=== PATIENT | female | born 1945 | race Caucasian/White ===

== ENCOUNTER 2016-10-26 07:56 | Day surgery (SDC) | payer OTHER, BC ==
[2016-10-25 15:15] VITALS: BMI 31.4
[2016-10-26] MEDS ORDERED: PROPOFOL 20 ML ONE ×2 (08:48)
[2016-10-26] MEDS ORDERED: LIDOCAINE HCL/PF 1% SDV 5ML VIAL ONE (08:48)
[2016-10-26 11:16] VITALS: BP 110/59; PULSE 68; TEMP 98
--- NOTE | 2016-10-27 13:46 | PATH ---
Surgical Pathology Report Patient Name: [facility]IA [facility]. Rec. #: [id number] /Age/Gender: 1945 (Age: 71) / F Account: [id number] Location: [facility] SURGICAL Taken: 10/26/2016 Received: 10/26/2016 Reported: 10/27/2016 Physicians: Ashely Joseph M.D. Specimen(s) Received A: POLYP SIGMOID B: BX SIGMOID STRICTURE Clinical History Colon polyp, diverticulosis, r/o smoldering diverticulitis Final Diagnosis A. COLON, SIGMOID, POLYP POLYPECTOMY: FRAGMENTS OF HYPERPLASTIC POLYP. B. COLON, SIGMOID, STRICTURE, BIOPSY: COLONIC MUCOSA WITH FOCAL MILD ACTIVE INTERSTITIAL INFLAMMATION, FOCAL LAMINA PROPRIA FIBROSIS, FOCALLY PROMINENT BENIGN SMOOTH MUSCLE, AND HYPERPLASTIC CHANGE (SEE COMMENT). NO EVIDENCE OF SIGNIFICANT ARCHITECTURAL DISTORTION, GRANULOMATA OR DYSPLASIA. Comment: The findings are nonspecific and may represent mild peridiverticular inflammation in proper clinical and endoscopic settings. Electronically Signed David Torres M.D. Gross Description A. Received in formalin, labeled "polyp sigmoid" are 5 demarco, irregular portions of soft tissue ranging from 0.1-0.3 cm in greatest dimension. The specimens are submitted in toto in one cassette. B. Received in formalin, labeled "biopsy sigmoid stricture" are 3 demarco, irregular portions of soft tissue ranging from 0.2-0.3 cm in greatest dimension. The specimens are submitted in toto in one cassette. /10/26/201610/26/2016
== END 2016-10-26 11:16 | disposition home or self-care (01) ==
LOC: JASU-SURG 07:56
PROVIDERS: ATTEND Internal Medicine Gastroenterology
PROC: 0DBE8ZX Excision of Large Intestine, Via Natural or Artificial Opening Endoscopic, Diagnostic (ICD-10-PCS; 2016-10-26)
PROC: 0DBN8ZX Excision of Sigmoid Colon, Via Natural or Artificial Opening Endoscopic, Diagnostic (ICD-10-PCS; principal; 2016-10-26 09:00)
DX: K57.32 Diverticulitis of large intestine without perforation or abscess without bleeding (principal); K56.69 Other intestinal obstruction; K57.30 Diverticulosis of large intestine without perforation or abscess without bleeding; D12.5 Benign neoplasm of sigmoid colon; R10.32 Left lower quadrant pain
CPT/HCPCS: 88305-TC

== ENCOUNTER 2016-12-14 07:02 | Day surgery (SDC) | payer OTHER, BC ==
[2016-12-13 14:17] VITALS: BMI 33.2
[2016-12-14 07:38] VITALS: TEMP 98.1
[2016-12-14] MEDS ORDERED: PROPOFOL 20 ML ONE ×2 (07:50)
[2016-12-14 09:53] VITALS: BP 105/55; PULSE 58
--- NOTE | 2016-12-15 12:54 | PATH ---
Surgical Pathology Report Patient Name: NUVIA [facility] Rec. #: [id number] /Age/Gender: 1945 (Age: 71) / F Account: [id number] Location: [facility]-ENDOSCOPY Taken: 12/14/2016 Received: 12/14/2016 Reported: 12/15/2016 Physicians: Ashely Joseph M.D. Specimen(s) Received A: BX ANTRAL EROSION B: BX OF FUNDIC POLYP C: BX GASTRIC BODY POLYP D: BX SCHATZKI'S RING Clinical History Acid reflux, dysphagia Gastric polyps, Schatzki's ring, gastritis, hiatal hernia Final Diagnosis A. STOMACH, ANTRUM, EROSION, BIOPSY: GASTRIC ANTRAL MUCOSA WITH MODERATE CHRONIC GASTRITIS AND MILD REACTIVE GASTROPATHY WITH FOCAL SURFACE EROSION. IMMUNOSTAIN FOR H. PYLORI IS NEGATIVE FOR ORGANISMS. B. STOMACH, FUNDIC POLYP, BIOPSY: GASTRIC OXYNTIC MUCOSA WITH FUNDIC GLAND POLYP AND MILD CHRONIC GASTRITIS. IMMUNOSTAIN FOR H. PYLORI IS NEGATIVE FOR ORGANISMS. C. STOMACH, BODY POLYP, BIOPSY: GASTRIC OXYNTIC MUCOSA WITH FUNDIC GLAND POLYP AND MODERATE CHRONIC GASTRITIS. IMMUNOSTAIN FOR H. PYLORI IS NEGATIVE FOR ORGANISMS. D. SCHATZKI'S RING, BIOPSY: SQUAMOUS EPITHELIUM WITH FOCAL ACUTE AND CHRONIC INFLAMMATION AND REFLUX TYPE CHANGES. NO COLUMNAR EPITHELIUM PRESENT (NO INTESTINAL METAPLASIA/WANG'S ESOPHAGUS IDENTIFIED). Electronically Signed David Torres M.D. Gross Description A. Received in formalin, labeled "biopsy antral erosion" is a demarco, irregular portion of soft tissue measuring 0.3 cm in greatest dimension. The specimen is submitted in toto in one cassette. B. Received in formalin, labeled "biopsy fundic polyps" are 3 demarco, irregular portions of soft tissue ranging from 0.1-0.4 cm in greatest dimension. The specimens are submitted in toto in one cassette. C. Received in formalin, labeled "biopsy gastric body" are 2 demarco, irregular portions of soft tissue averaging 0.2 cm in greatest dimension. The specimens are submitted in toto in one cassette. D. Received in formalin, labeled "biopsy Schatzki's ring" are 4 demarco, irregular portions of soft tissue ranging from 0.2-0.4 cm in greatest dimension. The specimens are submitted in toto in one cassette. DL/12/14/2016 saudi/12/14/2016
== END 2016-12-14 09:56 | disposition home or self-care (01) ==
LOC: JASU-ENDO 07:02
PROVIDERS: ATTEND Internal Medicine Gastroenterology
PROC: 0DB68ZX Excision of Stomach, Via Natural or Artificial Opening Endoscopic, Diagnostic (ICD-10-PCS; 2016-12-14)
PROC: 0DB28ZX Excision of Middle Esophagus, Via Natural or Artificial Opening Endoscopic, Diagnostic (ICD-10-PCS; 2016-12-14)
PROC: 0DB38ZX Excision of Lower Esophagus, Via Natural or Artificial Opening Endoscopic, Diagnostic (ICD-10-PCS; 2016-12-14)
PROC: 0DB48ZX Excision of Esophagogastric Junction, Via Natural or Artificial Opening Endoscopic, Diagnostic (ICD-10-PCS; 2016-12-14)
PROC: 0D748ZZ Dilation of Esophagogastric Junction, Via Natural or Artificial Opening Endoscopic (ICD-10-PCS; 2016-12-14)
PROC: 0DB98ZX Excision of Duodenum, Via Natural or Artificial Opening Endoscopic, Diagnostic (ICD-10-PCS; principal; 2016-12-14 08:00)
DX: K22.2 Esophageal obstruction (principal); K44.9 Diaphragmatic hernia without obstruction or gangrene; K21.0 Gastro-esophageal reflux disease with esophagitis; K25.9 Gastric ulcer, unspecified as acute or chronic, without hemorrhage or perforation; K31.7 Polyp of stomach and duodenum
CPT/HCPCS: 88305-TC; 88342-TC

== ENCOUNTER 2021-12-02 04:11 | Day surgery (SDC) | payer OTHER, BC ==
[2021-11-30 16:56] VITALS: BMI 29.6
[2021-12-02] MEDS ORDERED: MIDAZOLAM HCL 2 MG/2 ML SINGLE DOSE VIAL ONE (07:25)
[2021-12-02] MEDS ORDERED: PROPOFOL 20 ML ONE ×4 (07:25)
[2021-12-02] MEDS ORDERED: LIDOCAINE HCL/PF 2% SDV 5ML VIAL ONE (07:26)
[2021-12-02] MEDS ORDERED: LIDOCAINE 1%/EPI 1:100000 (20 ML MULTI DOSE VIAL) ONE (07:58)
[2021-12-02] MEDS ORDERED: BUPIVACAINE HCL/PF 0.5% (5MG/ML) 10 ML VIAL ONE (08:03)
[2021-12-02] MEDS ORDERED: ceFAZolin SODIUM 1 GM VIAL ONE (08:11)
[2021-12-02] MEDS ORDERED: GLYCOPYRROLATE 0.2 MG/1 ML VIAL ONE (08:11)
[2021-12-02] MEDS ORDERED: ceFAZolin SODIUM 1 GM VIAL IVPB ONE (08:15)
[2021-12-02] MEDS ORDERED: LIDOCAINE 1%/EPI 1:100000 (20 ML MULTI DOSE VIAL) IJ ONE (08:31)
[2021-12-02] MEDS ORDERED: BUPIVACAINE HCL/PF 0.5% (5MG/ML) 10 ML VIAL IJ ONE (08:31)
[2021-12-02] MEDS ORDERED: THROMBIN (BOVINE) 5,000 UNIT VIAL TP ONE ×2 (08:45)
[2021-12-02] MEDS ORDERED: PHENYLEPHRINE HCL 10 MG/1 ML SINGLE DOSE VIAL ONE (08:47)
[2021-12-02] MEDS ORDERED: DEXAMETHASONE SOD PHOSPHATE 4 MG/1 ML VIAL ONE (08:47)
[2021-12-02] MEDS ORDERED: ACETAMINOPHEN 325 MG TABLET (FP) PO PRN (09:06)
[2021-12-02] MEDS ORDERED: ONDANSETRON 4 MG/2 ML VIAL IVPUSH PRN (09:06)
[2021-12-02] MEDS ORDERED: oxyCODONE HCL 5 MG TABLET PO PRN (09:06)
[2021-12-02] MEDS ORDERED: LACTATED RINGERS SOLUTION 1,000 ML IV SCH (09:15)
[2021-12-02 09:56] VITALS: PULSE 94
[2021-12-02 10:36] VITALS: BP 118/60; TEMP 97.5
== END 2021-12-02 10:51 | disposition home or self-care (01) ==
LOC: JASU-SURG 04:11
PROVIDERS: ATTEND Surgery
PROC: 07B20ZX Excision of Left Neck Lymphatic, Open Approach, Diagnostic (ICD-10-PCS; principal; 2021-12-02 08:00)
DX: C83.31 Diffuse large B-cell lymphoma, lymph nodes of head, face, and neck (principal); I10 Essential (primary) hypertension; E11.9 Type 2 diabetes mellitus without complications
CPT/HCPCS: 88307-TC; 94760

== ENCOUNTER 2021-12-06 00:42 | Emergency (ER) | payer OTHER, BC ==
[2021-12-06] MEDS ORDERED: FAMOTIDINE 20 MG/50 ML IVPB 20 MG/50 ML MG IVPB ONE (00:50)
[2021-12-06] MEDS ORDERED: LACTULOSE 20 GM/30 ML UDC (FOR ORAL USE ONLY) PO ONE (00:51)
[2021-12-06 00:57] VITALS: BP 175/67; PULSE 68; TEMP 98.4; BMI 29.8
[2021-12-06] MEDS ORDERED: ACETAMINOPHEN 1000 MG/100 ML BAG IVPB ONE (01:03)
[2021-12-06] MEDS ORDERED: LACTULOSE 20 GM/30 ML UDC (FOR ORAL USE ONLY) ONE (01:25)
[2021-12-06] MEDS ORDERED: ACETAMINOPHEN INJECTION 100 ML IVPB ONE (01:25)
[2021-12-06 02:15] LABS: BASO % 0.4 % (0-2.0); EOS % 0.4 % (0-4.5); HEMATOCRIT 36.9 % (32.4-45.2); HEMOGLOBIN 12.4 GM/dL (10.7-15.3); LYMPH % 8.6 % (8-40); MCH 32.8 pg (25.7-33.7); MCHC 33.6 g/dl (32.0-36.0); MEAN CELL VOLUME 97.6 fl (80-96); MEAN PLT VOLUME 7.7 fl (7.5-11.1); MONO % 3.9 % (3.8-10.2); NEUT % 86.7 % (42.8-82.8); PLATELET COUNT 296 10^3/uL (134-434); RBC 3.78 M/mm3 (3.60-5.2); RDW 12.5 % (11.6-15.6); WHITE BLOOD COUNT 9.7 K/mm3 (4.0-10.0)
[2021-12-06 02:22] LABS: INR 1.08 (0.83-1.09); PROTHROMBIN TIME (PATIENT) 12.4 SEC (9.7-13.0)
[2021-12-06 02:39] LABS: BLOOD UREA NITROGEN 18.5 mg/dL (7-18); CALCIUM 9.2 mg/dL (8.5-10.1)
[2021-12-06] MEDS ORDERED: morphine SULFATE IMMEDIATE RELEASE 30 MG TAB PO ONE (02:39)
[2021-12-06 02:40] LABS: ALBUMIN 3.6 g/dl (3.4-5.0)
[2021-12-06 02:43] LABS: CREATININE 0.8 mg/dL (0.55-1.3)
[2021-12-06 02:44] LABS: BILIRUBIN,TOTAL 0.3 mg/dL (0.2-1); TOT PROT 6.8 g/dl (6.4-8.2)
[2021-12-06] MEDS ORDERED: morphine SULFATE IMMEDIATE RELEASE 30 MG TAB ONE (02:55)
== END 2021-12-06 03:44 | disposition home or self-care (01) ==
LOC: FER 00:42
PROC: 3E0333Z Introduction of Anti-inflammatory into Peripheral Vein, Percutaneous Approach (ICD-10-PCS; principal; 2021-12-06)
PROC: 3E033GC Introduction of Other Therapeutic Substance into Peripheral Vein, Percutaneous Approach (ICD-10-PCS; 2021-12-06)
DX: R06.00 Dyspnea, unspecified (principal); R10.13 Epigastric pain; K59.01 Slow transit constipation
CPT/HCPCS: 36415; 80053; 82550; 84484; 85025; 85610; 93005; 96374; 96375; 99284-25

== ENCOUNTER 2022-01-07 05:44 | Day surgery (SDC) | payer OTHER, BC ==
[2022-01-05 12:36] VITALS: BMI 31.2
[2022-01-07 14:31] VITALS: BP 112/55; PULSE 63; TEMP 98.1
== END 2022-01-07 14:38 | disposition home or self-care (01) ==
LOC: JASU-ENDO 05:44
PROVIDERS: ATTEND Internal Medicine Gastroenterology
PROC: 0DB28ZX Excision of Middle Esophagus, Via Natural or Artificial Opening Endoscopic, Diagnostic (ICD-10-PCS; 2022-01-07)
PROC: 0DB78ZX Excision of Stomach, Pylorus, Via Natural or Artificial Opening Endoscopic, Diagnostic (ICD-10-PCS; 2022-01-07)
PROC: 0DBN8ZX Excision of Sigmoid Colon, Via Natural or Artificial Opening Endoscopic, Diagnostic (ICD-10-PCS; principal; 2022-01-07 12:52)
DX: Z12.11 Encounter for screening for malignant neoplasm of colon (principal); C85.11 Unspecified B-cell lymphoma, lymph nodes of head, face, and neck; K22.10 Ulcer of esophagus without bleeding; K44.9 Diaphragmatic hernia without obstruction or gangrene; K56.699 Other intestinal obstruction unspecified as to partial versus complete obstruction; K57.30 Diverticulosis of large intestine without perforation or abscess without bleeding; D13.1 Benign neoplasm of stomach; D64.9 Anemia, unspecified; I10 Essential (primary) hypertension
CPT/HCPCS: 88305-TC; 88342-TC

== ENCOUNTER 2022-01-12 07:55 | Day surgery (SDC) | payer OTHER, BC ==
[2022-01-12] MEDS ORDERED: LIDOCAINE 2.5%/PRILOCAINE 2.5% 30 GRAM TUBE TP ONE (09:15)
[2022-01-12 09:55] LABS: BASO % 0.8 % (0-2.0); EOS % 5.2 % (0-4.5); HEMATOCRIT 36.1 % (32.4-45.2); LYMPH % 24.2 % (8-40); MCH 32.2 pg (25.7-33.7); MCHC 33.2 g/dl (32.0-36.0); MEAN CELL VOLUME 97.2 fl (80-96); MEAN PLT VOLUME 7.8 fl (7.5-11.1); MONO % 7.4 % (3.8-10.2); NEUT % 62.4 % (42.8-82.8); PLATELET COUNT 242 10^3/uL (134-434); RBC 3.72 M/mm3 (3.60-5.2); RDW 12.9 % (11.6-15.6); WHITE BLOOD COUNT 5.2 K/mm3 (4.0-10.0)
[2022-01-12] MEDS ORDERED: SODIUM CHLORIDE 250 ML IV ONE ×2 (10:00→13:00)
[2022-01-12 10:18] LABS: ALBUMIN 3.3 g/dl (3.4-5.0); BLOOD UREA NITROGEN 16.7 mg/dL (7-18)
[2022-01-12 10:20] LABS: BILIRUBIN,DIRECT 0.1 mg/dL (0.0-0.2); CREATININE 0.7 mg/dL (0.55-1.3); URIC ACID 2.6 mg/dL (2.6-7.2)
[2022-01-12 10:22] LABS: TOT PROT 6.7 g/dl (6.4-8.2)
[2022-01-12 10:23] LABS: BILIRUBIN,TOTAL 0.4 mg/dL (0.2-1)
[2022-01-12] MEDS ORDERED: ACETAMINOPHEN 325 MG TABLET (FP) PO ONE (10:30)
[2022-01-12] MEDS ORDERED: DEXAMETHASONE SODIUM PHOSPHATE 10 MG, DIPHENHYDRAMINE 25 MG in SODIUM CHLORIDE 100 ML IVPB ONE (10:30)
[2022-01-12] MEDS ORDERED: RITUXIMAB ABBS IVPB ONE (11:00)
[2022-01-12] MEDS ORDERED: SODIUM CHLORIDE IVPB ONE (11:00)
[2022-01-12] MEDS ORDERED: PORTA CATH FLUSH 10 ML IVPUSH ONE ×2 (16:52→17:40)
[2022-01-12 16:53] VITALS: TEMP 97.5
[2022-01-12 17:41] VITALS: BP 137/56; PULSE 63
== END 2022-01-12 17:45 | disposition home or self-care (01) ==
LOC: JONCCHEMO 07:55
PROVIDERS: ATTEND Internal Medicine Hematology & Oncology
PROC: 3E04305 Introduction of Other Antineoplastic into Central Vein, Percutaneous Approach (ICD-10-PCS; principal; 2022-01-12)
PROC: 3E043GC Introduction of Other Therapeutic Substance into Central Vein, Percutaneous Approach (ICD-10-PCS; 2022-01-12)
PROC: 3E0437Z Introduction of Electrolytic and Water Balance Substance into Central Vein, Percutaneous Approach (ICD-10-PCS; 2022-01-12)
DX: Z51.11 Encounter for antineoplastic chemotherapy (principal); C83.31 Diffuse large B-cell lymphoma, lymph nodes of head, face, and neck
CPT/HCPCS: 36415; 80048; 80076; 83615; 83735; 84550; 85025; 96361; 96367; 96413; 96415; Q5115

== ENCOUNTER 2022-01-13 07:01 | Day surgery (SDC) | payer OTHER, BC ==
[2022-01-13] MEDS ORDERED: SODIUM CHLORIDE 500 ML IV ONE (10:00)
[2022-01-13] MEDS ORDERED: DEXAMETHASONE SODIUM PHOSPHATE 10 MG in SODIUM CHLORIDE 50 ML IVPB ONE (10:30)
[2022-01-13] MEDS ORDERED: FOSAPREPITANT DIMEGLUMINE 150 MG in SODIUM CHLORIDE 145 ML IVPB ONE (10:30)
[2022-01-13] MEDS ORDERED: PALONOSETRON HCL 0.25 MG/5 ML VIAL IVPUSH ONE (10:30)
[2022-01-13] MEDS ORDERED: DOXOrubicin HCL 50 MG/25 ML VIAL IV ONE (11:00)
[2022-01-13] MEDS ORDERED: SODIUM CHLORIDE IVPB ONE (11:30)
[2022-01-13] MEDS ORDERED: CYCLOPHOSPHAMIDE IVPB ONE (11:30)
[2022-01-13] MEDS ORDERED: vinCRIStine SULFATE 2 MG in SODIUM CHLORIDE 25 ML IVPB ONE (12:00)
[2022-01-13] MEDS ORDERED: POTASSIUM CHLORIDE 10 MEQ, MAGNESIUM SULFATE 1 GM in SODIUM CHLORIDE 500 ML IV ONE (12:15)
[2022-01-13 14:57] VITALS: TEMP 97.4
[2022-01-13] MEDS ORDERED: PORTA CATH FLUSH 10 ML IVPUSH ONE (15:27)
[2022-01-13 16:05] VITALS: BP 144/72; PULSE 66
== END 2022-01-13 14:30 | disposition home or self-care (01) ==
LOC: JONCCHEMO 07:01
PROVIDERS: ATTEND Internal Medicine Hematology & Oncology
PROC: 3E04305 Introduction of Other Antineoplastic into Central Vein, Percutaneous Approach (ICD-10-PCS; principal; 2022-01-13)
PROC: 3E043GC Introduction of Other Therapeutic Substance into Central Vein, Percutaneous Approach (ICD-10-PCS; 2022-01-13)
PROC: 3E0437Z Introduction of Electrolytic and Water Balance Substance into Central Vein, Percutaneous Approach (ICD-10-PCS; 2022-01-13)
DX: Z51.11 Encounter for antineoplastic chemotherapy (principal); C83.31 Diffuse large B-cell lymphoma, lymph nodes of head, face, and neck
CPT/HCPCS: 96361; 96367; 96375; 96411; 96413; J1453; J2469; J9070; J9370

== ENCOUNTER 2022-01-14 07:10 | Day surgery (SDC) | payer OTHER, BC ==
[2022-01-14] MEDS ORDERED: PEGFILGRASTIM-CBQV (UDENYCA) 6 MG/0.6 ML SYRINGE SQ ONE (10:00)
[2022-01-14] MEDS ORDERED: POTASSIUM CHLORIDE 10 MEQ, MAGNESIUM SULFATE 1 GM in SODIUM CHLORIDE 500 ML IV ONE (10:00)
[2022-01-14] MEDS ORDERED: DEXAMETHASONE SODIUM PHOSPHATE 10 MG in SODIUM CHLORIDE 50 ML IVPB ONE (10:00)
[2022-01-14 14:43] VITALS: TEMP 98.6
[2022-01-14] MEDS ORDERED: PORTA CATH FLUSH 10 ML IVPUSH ONE (15:05)
[2022-01-14 15:06] VITALS: BP 128/53; PULSE 76
== END 2022-01-14 12:00 | disposition home or self-care (01) ==
LOC: JONCCHEMO 07:10
PROVIDERS: ATTEND Internal Medicine Hematology & Oncology
PROC: 3E043GC Introduction of Other Therapeutic Substance into Central Vein, Percutaneous Approach (ICD-10-PCS; principal; 2022-01-14)
PROC: 3E013GC Introduction of Other Therapeutic Substance into Subcutaneous Tissue, Percutaneous Approach (ICD-10-PCS; 2022-01-14)
DX: C83.31 Diffuse large B-cell lymphoma, lymph nodes of head, face, and neck (principal); Z76.89 Persons encountering health services in other specified circumstances
CPT/HCPCS: 96372; 96374; Q5111

== ENCOUNTER 2022-01-31 06:26 | Day surgery (SDC) | payer OTHER, BC ==
[2022-01-31] MEDS ORDERED: SODIUM CHLORIDE 250 ML IV ONE ×2 (09:00→13:00)
[2022-01-31] MEDS ORDERED: ACETAMINOPHEN 325 MG TABLET (FP) PO ONE (09:30)
[2022-01-31] MEDS ORDERED: DEXAMETHASONE SODIUM PHOSPHATE 10 MG, DIPHENHYDRAMINE 25 MG in SODIUM CHLORIDE 100 ML IVPB ONE (09:30)
[2022-01-31 09:51] LABS: BASO % 1.5 % (0-2.0); EOS % 1.4 % (0-4.5); HEMATOCRIT 33.4 % (32.4-45.2); HEMOGLOBIN 11.5 GM/dL (10.7-15.3); LYMPH % 16.8 % (8-40); MCH 33.3 pg (25.7-33.7); MCHC 34.4 g/dl (32.0-36.0); MEAN CELL VOLUME 97.1 fl (80-96); MEAN PLT VOLUME 7.5 fl (7.5-11.1); MONO % 10.2 % (3.8-10.2); NEUT % 70.1 % (42.8-82.8); PLATELET COUNT 375 10^3/uL (134-434); RBC 3.44 M/mm3 (3.60-5.2); RDW 13.5 % (11.6-15.6)
[2022-01-31 10:11] LABS: CALCIUM 9.3 mg/dL (8.5-10.1)
[2022-01-31 10:12] LABS: BLOOD UREA NITROGEN 13.4 mg/dL (7-18)
[2022-01-31 10:14] LABS: BILIRUBIN,DIRECT 0.1 mg/dL (0.0-0.2)
[2022-01-31 10:15] LABS: CREATININE 0.7 mg/dL (0.55-1.3)
[2022-01-31 10:16] LABS: BILIRUBIN,TOTAL 0.2 mg/dL (0.2-1); TOT PROT 6.5 g/dl (6.4-8.2)
[2022-01-31 10:33] LABS: ALBUMIN 3.5 g/dl (3.4-5.0)
[2022-01-31] MEDS ORDERED: SODIUM CHLORIDE IVPB ONE (12:30)
[2022-01-31] MEDS ORDERED: RITUXIMAB ABBS IVPB ONE (12:30)
[2022-01-31 18:15] VITALS: TEMP 98.1
[2022-01-31] MEDS ORDERED: PORTA CATH FLUSH 10 ML IVPUSH PRN (18:41)
[2022-01-31 18:42] VITALS: BP 126/76; PULSE 76
[2022-02-01] MEDS ORDERED: SODIUM CHLORIDE IVPB ONE (10:00)
[2022-02-01] MEDS ORDERED: RITUXIMAB ABBS IVPB ONE (10:00)
== END 2022-01-31 18:10 | disposition home or self-care (01) ==
LOC: JONCCHEMO 06:26
PROVIDERS: ATTEND Internal Medicine Hematology & Oncology
DX: Z51.11 Encounter for antineoplastic chemotherapy (principal); C83.30 Diffuse large B-cell lymphoma, unspecified site
CPT/HCPCS: 36415; 80048; 80076; 83615; 83735; 84550; 85025; 96361; 96367; 96413; 96415; Q5115

== ENCOUNTER 2022-02-01 06:18 | Day surgery (SDC) | payer OTHER, BC ==
[2022-02-01] MEDS ORDERED: SODIUM CHLORIDE 500 ML IV ONE (09:00)
[2022-02-01] MEDS ORDERED: PALONOSETRON HCL 0.25 MG/5 ML VIAL IVPUSH ONE (09:30)
[2022-02-01] MEDS ORDERED: FOSAPREPITANT DIMEGLUMINE 150 MG in SODIUM CHLORIDE 145 ML IVPB ONE (09:30)
[2022-02-01] MEDS ORDERED: DEXAMETHASONE SODIUM PHOSPHATE 10 MG in SODIUM CHLORIDE 50 ML IVPB ONE (09:30)
[2022-02-01] MEDS ORDERED: DOXOrubicin HCL 50 MG/25 ML VIAL IV ONE (10:00)
[2022-02-01] MEDS ORDERED: SODIUM CHLORIDE IVPB ONE (10:15)
[2022-02-01] MEDS ORDERED: CYCLOPHOSPHAMIDE IVPB ONE (10:15)
[2022-02-01] MEDS ORDERED: vinCRIStine SULFATE 1 MG in SODIUM CHLORIDE 25 ML IVPB ONE (10:45)
[2022-02-01] MEDS ORDERED: POTASSIUM CHLORIDE 10 MEQ, MAGNESIUM SULFATE 1 GM in SODIUM CHLORIDE 500 ML IV ONE (11:00)
[2022-02-01 17:21] VITALS: BP 119/59; PULSE 64; TEMP 98.4
[2022-02-01] MEDS ORDERED: PORTA CATH FLUSH 10 ML IVPUSH PRN (17:21)
== END 2022-02-01 15:00 | disposition home or self-care (01) ==
LOC: JONCCHEMO 06:18
PROVIDERS: ATTEND Internal Medicine Hematology & Oncology
DX: Z51.11 Encounter for antineoplastic chemotherapy (principal); C83.30 Diffuse large B-cell lymphoma, unspecified site
CPT/HCPCS: 96361; 96375; 96411; 96413; J1453; J2469; J9070; J9370

== ENCOUNTER 2022-02-02 07:55 | Day surgery (SDC) | payer OTHER, BC ==
[~2022-02-02 07:55] MED LIST: CYCLOPHOSPHAMIDE IVPB ONE; DEXAMETHASONE SODIUM PHOSPHATE 10 MG in SODIUM CHLORIDE 50 ML IVPB ONE; DOXOrubicin HCL 50 MG/25 ML VIAL IV ONE; FOSAPREPITANT DIMEGLUMINE 150 MG in SODIUM CHLORIDE 145 ML IVPB ONE; PALONOSETRON HCL 0.25 MG/5 ML VIAL IVPUSH ONE; POTASSIUM CHLORIDE 10 MEQ, MAGNESIUM SULFATE 1 GM in SODIUM CHLORIDE 500 ML IV ONE; SODIUM CHLORIDE 500 ML IV ONE; SODIUM CHLORIDE IVPB ONE; vinCRIStine SULFATE 1 MG in SODIUM CHLORIDE 25 ML IVPB ONE
[2022-02-02] MEDS ORDERED: POTASSIUM CHLORIDE 10 MEQ, MAGNESIUM SULFATE 1 GM in SODIUM CHLORIDE 500 ML IV ONE (09:00)
[2022-02-02] MEDS ORDERED: DEXAMETHASONE SODIUM PHOSPHATE 10 MG in SODIUM CHLORIDE 50 ML IVPB ONE (10:00)
[2022-02-02] MEDS ORDERED: PEGFILGRASTIM-CBQV (UDENYCA) 6 MG/0.6 ML SYRINGE SQ ONE (10:00)
[2022-02-02 16:43] VITALS: BP 115/50; PULSE 54; TEMP 98.1
[2022-02-02] MEDS ORDERED: PORTA CATH FLUSH 10 ML IVPUSH PRN (16:43)
== END 2022-02-02 16:00 | disposition home or self-care (01) ==
LOC: JONCCHEMO 07:55
PROVIDERS: ATTEND Internal Medicine Hematology & Oncology
PROC: 3E043GC Introduction of Other Therapeutic Substance into Central Vein, Percutaneous Approach (ICD-10-PCS; principal; 2022-02-02)
PROC: 3E013GC Introduction of Other Therapeutic Substance into Subcutaneous Tissue, Percutaneous Approach (ICD-10-PCS; 2022-02-02)
DX: C83.30 Diffuse large B-cell lymphoma, unspecified site (principal); Z76.89 Persons encountering health services in other specified circumstances
CPT/HCPCS: 96372; 96374; Q5111

== ENCOUNTER 2022-02-20 12:31 | Inpatient (IN) | payer OTHER, BC ==
[2022-02-20] MEDS ORDERED: LACTATED RINGERS SOLUTION 1000 ML INFUS.BAG IV ONE (13:11)
[2022-02-20 14:00] LABS: BASO % 0.8 % (0-2.0); EOS % 0.6 % (0-4.5); HEMATOCRIT 32.8 % (32.4-45.2); HEMOGLOBIN 10.8 GM/dL (10.7-15.3); LYMPH % 6.2 % (8-40); MCH 32.6 pg (25.7-33.7); MEAN CELL VOLUME 98.7 fl (80-96); MEAN PLT VOLUME 7.5 fl (7.5-11.1); MONO % 4.2 % (3.8-10.2); NEUT % 88.2 % (42.8-82.8); PLATELET COUNT 323 10^3/uL (134-434); RBC 3.33 M/mm3 (3.60-5.2); RDW 17.6 % (11.6-15.6)
[2022-02-20 14:05] LABS: INR 1.09 (0.83-1.09); PROTHROMBIN TIME (PATIENT) 12.5 SEC (9.7-13.0)
[2022-02-20 14:06] LABS: VENOUS O2 SATURATION 51.7 % (70-80); VENOUS PH 7.407 (7.310-7.410)
[2022-02-20 14:07] LABS: ACTIVATED PTT 26.1 SECONDS (25.2-36.5)
[2022-02-20 14:12] LABS: EPI CELLS 2 /uL (0-25.1); HYALINE CASTS 0 /uL (0-3.1); URINE APPEARANCE CLEAR; URINE BACTERIA 42 /uL (0-1359); URINE BILIRUBIN NEGATIVE (NEGATIVE); URINE COLOR YELLOW; URINE GLUCOSE (UA) NEGATIVE (NEGATIVE); URINE KETONE NEGATIVE (NEGATIVE); URINE LEUK ESTERASE TRACE (NEGATIVE); URINE NITRITE NEGATIVE (NEGATIVE); URINE PROTEIN NEGATIVE (NEGATIVE); URINE RBC 5 /uL (0-23.9); URINE UROBILINOGEN 0.2 mg/dL (0.2-1.0); URINE WBC 18 /uL (0-25.8)
[2022-02-20 14:19] LABS: CHLORIDE 105 mmol/L (98-107); SODIUM 139 mmol/L (136-145)
[2022-02-20 14:21] LABS: CALCIUM 8.9 mg/dL (8.5-10.1)
[2022-02-20 14:22] LABS: ALBUMIN 3.6 g/dl (3.4-5.0); ANION GAP 7 MMOL/L (8-16); BLOOD UREA NITROGEN 14.2 mg/dL (7-18); CO2 28 mmol/L (21-32); GLUCOSE,RANDOM 105 mg/dL (74-106)
[2022-02-20 14:25] LABS: CREATININE 0.6 mg/dL (0.55-1.3); SGOT/AST 24 U/L (15-37); SGPT/ALT 26 U/L (13-61)
[2022-02-20 14:27] LABS: BILIRUBIN,TOTAL 0.3 mg/dL (0.2-1); TOT PROT 6.5 g/dl (6.4-8.2)
[2022-02-20 14:28] LABS: ALK PHOS 141 U/L (45-117)
[2022-02-20] MEDS ORDERED: PIPERACILLIN/TAZOB 3.375 GM 3.375 GM in DEXTROSE 5%-WATER - 50 ML IVPB ONE (15:01)
[2022-02-20] MEDS ORDERED: PIPERACILLIN/TAZOB 3.375 GM 3.375 GM/50 ML BAG IVPB ONE (15:04)
[2022-02-20] MEDS ORDERED: ACETAMINOPHEN 325 MG TABLET (FP) PO PRN (22:51)
[2022-02-20] MEDS ORDERED: DEXTROSE 5%-WATER - 50 ML IVPB ONE (23:24)
[2022-02-20] MEDS ORDERED: PIPERACILLIN/TAZOBACTAM 3.375 GM VIAL IVPB ONE (23:24)
[2022-02-20] MEDS: DEXTROSE 5%-0.45% SALINE 1,000 ML IV SCH (23:58)
[2022-02-20] MEDS: PIPERACILLIN/TAZOB 3.375 GM 3.375 GM in DEXTROSE 5%-WATER - 50 ML IVPB SCH (23:58)
[2022-02-21 01:39] VITALS: BMI 26.9
[2022-02-21] MEDS ORDERED: DEXTROSE 5%-WATER - 50 ML IVPB ONE ×2 (05:41→21:29)
[2022-02-21] MEDS ORDERED: PIPERACILLIN/TAZOBACTAM 3.375 GM VIAL IVPB ONE ×3 (05:41→21:29)
[2022-02-21] MEDS: PIPERACILLIN/TAZOB 3.375 GM 3.375 GM in DEXTROSE 5%-WATER - 50 ML IVPB SCH ×3 (06:32→21:30)
[2022-02-21 09:00] LABS: BASO % 1.2 % (0-2.0); EOS % 1.7 % (0-4.5); HEMOGLOBIN 10.2 GM/dL (10.7-15.3); LYMPH % 8.2 % (8-40); MCH 33.5 pg (25.7-33.7); MCHC 34.1 g/dl (32.0-36.0); MEAN CELL VOLUME 98.4 fl (80-96); MEAN PLT VOLUME 7.4 fl (7.5-11.1); MONO % 7.9 % (3.8-10.2); PLATELET COUNT 299 10^3/uL (134-434); RBC 3.04 M/mm3 (3.60-5.2); RDW 18.5 % (11.6-15.6); WHITE BLOOD COUNT 10.2 K/mm3 (4.0-10.0)
[2022-02-21] MEDS: HYDROCHLOROTHIAZIDE 12.5 MG CAPSULE (FP) PO SCH (09:13)
[2022-02-21] MEDS: LISINOPRIL 10 MG TABLET PO SCH (09:13)
[2022-02-21] MEDS: PANTOPRAZOLE 40 MG TABLET PO SCH (09:13)
[2022-02-21] MEDS: HEPARIN NA (PORCINE) 5,000 UNITS/ML 1ML VIAL SQ SCH ×2 (09:13→21:30)
[2022-02-21 09:25] LABS: ALBUMIN 3.1 g/dl (3.4-5.0)
[2022-02-21 09:28] LABS: CREATININE 0.6 mg/dL (0.55-1.3)
[2022-02-21 09:30] LABS: BILIRUBIN,TOTAL 0.6 mg/dL (0.2-1); TOT PROT 5.8 g/dl (6.4-8.2)
[2022-02-21] MEDS ORDERED: PATIENT'S OWN MEDICATION (NON-FORMULARY) (Lisinopril/Hydrochlorothiazide [Lisinopril-Hctz PO SCH (10:00)
[2022-02-21] MEDS: VANCOMYCIN 1,000 MG in DEXTROSE 5%-WATER - 250 ML IVPB SCH (15:45)
[2022-02-21] MEDS: ATORVASTATIN CA 20 MG TABLET (FP) PO SCH (21:31)
[2022-02-21] MEDS: DEXTROSE 5%-0.45% SALINE 1,000 ML IV SCH (22:28)
[2022-02-21] MEDS ORDERED: PIPERACILLIN/TAZOB 3.375 GM 3.375 GM in DEXTROSE 5%-WATER - 50 ML IVPB SCH (23:00)
[2022-02-22] MEDS: VANCOMYCIN 1,000 MG in DEXTROSE 5%-WATER - 250 ML IVPB SCH (03:41)
[2022-02-22] MEDS ORDERED: PIPERACILLIN/TAZOBACTAM 3.375 GM VIAL IVPB ONE ×3 (06:36→21:57)
[2022-02-22] MEDS ORDERED: DEXTROSE 5%-WATER - 50 ML IVPB ONE ×3 (06:36→21:57)
[2022-02-22] MEDS: PIPERACILLIN/TAZOB 3.375 GM 3.375 GM in DEXTROSE 5%-WATER - 50 ML IVPB SCH ×3 (06:38→22:00)
[2022-02-22] MEDS: HEPARIN NA (PORCINE) 5,000 UNITS/ML 1ML VIAL SQ SCH ×2 (11:19→21:59)
[2022-02-22] MEDS: LISINOPRIL 10 MG TABLET PO SCH (11:19)
[2022-02-22] MEDS: PANTOPRAZOLE 40 MG TABLET PO SCH (11:19)
[2022-02-22] MEDS: HYDROCHLOROTHIAZIDE 12.5 MG CAPSULE (FP) PO SCH (11:19)
[2022-02-22] MEDS: DEXTROSE 5%-0.45% SALINE 1,000 ML IV SCH (18:00)
[2022-02-22] MEDS: ATORVASTATIN CA 20 MG TABLET (FP) PO SCH (22:00)
[2022-02-23] MEDS ORDERED: DEXTROSE 5%-WATER - 50 ML IVPB ONE (05:36)
[2022-02-23] MEDS ORDERED: PIPERACILLIN/TAZOBACTAM 3.375 GM VIAL IVPB ONE (05:36)
[2022-02-23] MEDS: PIPERACILLIN/TAZOB 3.375 GM 3.375 GM in DEXTROSE 5%-WATER - 50 ML IVPB SCH (05:49)
[2022-02-23] MEDS: DEXTROSE 5%-0.45% SALINE 1,000 ML IV SCH (07:55)
[2022-02-23 08:44] VITALS: BP 108/58; PULSE 88; TEMP 98.3
[2022-02-23] MEDS: PANTOPRAZOLE 40 MG TABLET PO SCH (10:35)
[2022-02-23] MEDS: LISINOPRIL 10 MG TABLET PO SCH (10:35)
[2022-02-23] MEDS: HYDROCHLOROTHIAZIDE 12.5 MG CAPSULE (FP) PO SCH (10:35)
[2022-02-23] MEDS: HEPARIN NA (PORCINE) 5,000 UNITS/ML 1ML VIAL SQ SCH (10:35)
== END 2022-02-23 13:41 | disposition home health service (06) | DRG 864 ==
LOC: JER 12:31 → JERBED 15:04 → J6S 17:56
PROVIDERS: ADMIT Family Medicine; ATTEND Family Medicine
DX: R50.9 Fever, unspecified (principal); C85.90 Non-Hodgkin lymphoma, unspecified, unspecified site; I10 Essential (primary) hypertension; E78.5 Hyperlipidemia, unspecified; K21.9 Gastro-esophageal reflux disease without esophagitis; J02.8 Acute pharyngitis due to other specified organisms; D72.829 Elevated white blood cell count, unspecified
CPT/HCPCS: 0241U-QW; 36415; 71045-TC-FY; 80053; 81003; 82553; 82803; 83605; 84484; 85025; 85610; 85730; 86850; 86900; 86901; 87040; 87070; 87086; 87804; 87807; 93005; 93010; 99285-25; C9803-CS; J1644; U0003; U0005

== ENCOUNTER 2022-02-24 07:32 | Day surgery (SDC) | payer OTHER, BC ==
[2022-02-24 10:29] VITALS: TEMP 98
[2022-02-24] MEDS ORDERED: SODIUM CHLORIDE 250 ML IV ONE ×3 (11:00→14:00)
[2022-02-24] MEDS ORDERED: DEXAMETHASONE SODIUM PHOSPHATE 10 MG, DIPHENHYDRAMINE 25 MG in SODIUM CHLORIDE 100 ML IVPB ONE (11:30)
[2022-02-24] MEDS ORDERED: ACETAMINOPHEN 325 MG TABLET (FP) PO ONE (11:30)
[2022-02-24] MEDS ORDERED: SODIUM CHLORIDE IVPB ONE (12:00)
[2022-02-24] MEDS ORDERED: RITUXIMAB ABBS IVPB ONE (12:00)
[2022-02-24] MEDS ORDERED: PORTA CATH FLUSH 10 ML IVPUSH PRN (13:50)
[2022-02-24 16:22] VITALS: BP 133/67; PULSE 75
== END 2022-02-24 16:50 | disposition home or self-care (01) ==
LOC: JONCCHEMO 07:32
PROVIDERS: ATTEND Internal Medicine Hematology & Oncology
DX: Z51.11 Encounter for antineoplastic chemotherapy (principal); C83.30 Diffuse large B-cell lymphoma, unspecified site
CPT/HCPCS: 96361; 96367; 96413; 96415; Q5115

== ENCOUNTER 2022-02-25 08:18 | Day surgery (SDC) | payer OTHER, BC ==
[2022-02-25] MEDS ORDERED: SODIUM CHLORIDE 500 ML IV ONE (09:00)
[2022-02-25] MEDS ORDERED: PALONOSETRON HCL 0.25 MG/5 ML VIAL IVPUSH ONE (09:30)
[2022-02-25] MEDS ORDERED: FOSAPREPITANT DIMEGLUMINE 150 MG in SODIUM CHLORIDE 145 ML IVPB ONE (09:30)
[2022-02-25] MEDS ORDERED: DEXAMETHASONE SODIUM PHOSPHATE 10 MG in SODIUM CHLORIDE 50 ML IVPB ONE (09:30)
[2022-02-25] MEDS ORDERED: DOXOrubicin HCL 50 MG/25 ML VIAL IV ONE (10:00)
[2022-02-25] MEDS ORDERED: SODIUM CHLORIDE IVPB ONE (10:15)
[2022-02-25] MEDS ORDERED: CYCLOPHOSPHAMIDE IVPB ONE (10:15)
[2022-02-25] MEDS ORDERED: vinCRIStine SULFATE 1 MG in SODIUM CHLORIDE 25 ML IVPB ONE (10:45)
[2022-02-25] MEDS ORDERED: POTASSIUM CHLORIDE 10 MEQ, MAGNESIUM SULFATE 1 GM in SODIUM CHLORIDE 500 ML IV ONE (11:00)
[2022-02-25 17:00] VITALS: BP 123/65; PULSE 77; TEMP 98.4
[2022-02-25] MEDS ORDERED: PORTA CATH FLUSH 10 ML IVPUSH PRN (17:00)
== END 2022-02-25 14:00 | disposition home or self-care (01) ==
LOC: JONCCHEMO 08:18
PROVIDERS: ATTEND Internal Medicine Hematology & Oncology
DX: Z51.11 Encounter for antineoplastic chemotherapy (principal); C83.30 Diffuse large B-cell lymphoma, unspecified site
CPT/HCPCS: 96361; 96367; 96375; 96411; 96413; J1453; J2469; J9070; J9370

== ENCOUNTER 2022-02-26 09:22 | Day surgery (SDC) | payer OTHER, BC ==
[~2022-02-26 09:22] MED LIST changes: -CYCLOPHOSPHAMIDE IVPB ONE; -DOXOrubicin HCL 50 MG/25 ML VIAL IV ONE; -FOSAPREPITANT DIMEGLUMINE 150 MG in SODIUM CHLORIDE 145 ML IVPB ONE; -PALONOSETRON HCL 0.25 MG/5 ML VIAL IVPUSH ONE; -SODIUM CHLORIDE 500 ML IV ONE; -SODIUM CHLORIDE IVPB ONE; -vinCRIStine SULFATE 1 MG in SODIUM CHLORIDE 25 ML IVPB ONE
[2022-02-26] MEDS ORDERED: PEGFILGRASTIM-CBQV (UDENYCA) 6 MG/0.6 ML SYRINGE SQ ONE (10:00)
[2022-02-26 15:10] VITALS: BP 133/73; PULSE 86; TEMP 98
== END 2022-02-26 16:45 | disposition home or self-care (01) ==
LOC: JONCCHEMO 09:22 → J7W 09:22 → JONCCHEMO 16:45
PROVIDERS: ATTEND Internal Medicine Hematology & Oncology
PROC: 3E043GC Introduction of Other Therapeutic Substance into Central Vein, Percutaneous Approach (ICD-10-PCS; principal; 2022-02-26)
DX: C83.30 Diffuse large B-cell lymphoma, unspecified site (principal); Z76.89 Persons encountering health services in other specified circumstances
CPT/HCPCS: 96365; 96375; Q5111

== ENCOUNTER 2022-03-16 06:47 | Day surgery (SDC) | payer OTHER, BC ==
[2022-03-16 10:07] LABS: BASO % 1.9 % (0-2.0); EOS % 2.2 % (0-4.5); HEMATOCRIT 31.3 % (32.4-45.2); LYMPH % 14.5 % (8-40); MCH 35.1 pg (25.7-33.7); MCHC 35.1 g/dl (32.0-36.0); MEAN PLT VOLUME 7.1 fl (7.5-11.1); MONO % 11.2 % (3.8-10.2); NEUT % 70.2 % (42.8-82.8); PLATELET COUNT 254 10^3/uL (134-434); RBC 3.13 M/mm3 (3.60-5.2); RDW 19.2 % (11.6-15.6); WHITE BLOOD COUNT 5.4 K/mm3 (4.0-10.0)
[2022-03-16] MEDS ORDERED: SODIUM CHLORIDE 250 ML IV ONE ×5 (10:30→16:00)
[2022-03-16 10:38] LABS: CALCIUM 9.4 mg/dL (8.5-10.1)
[2022-03-16 10:39] LABS: ALBUMIN 3.6 g/dl (3.4-5.0); BLOOD UREA NITROGEN 16.6 mg/dL (7-18); MAGNESIUM 2.2 mg/dL (1.8-2.4)
[2022-03-16 10:41] LABS: CREATININE 0.7 mg/dL (0.55-1.3); URIC ACID 2.1 mg/dL (2.6-7.2)
[2022-03-16 10:42] LABS: BILIRUBIN,DIRECT 0.1 mg/dL (0.0-0.2)
[2022-03-16 10:43] LABS: BILIRUBIN,TOTAL 0.7 mg/dL (0.2-1); TOT PROT 6.2 g/dl (6.4-8.2)
[2022-03-16] MEDS ORDERED: ACETAMINOPHEN 325 MG TABLET (FP) PO ONE (11:45)
[2022-03-16] MEDS ORDERED: DEXAMETHASONE SODIUM PHOSPHATE 10 MG, DIPHENHYDRAMINE 25 MG in SODIUM CHLORIDE 100 ML IVPB ONE (12:15)
[2022-03-16] MEDS ORDERED: RITUXIMAB ABBS IVPB ONE (12:45)
[2022-03-16] MEDS ORDERED: SODIUM CHLORIDE IVPB ONE (12:45)
[2022-03-16 17:15] VITALS: TEMP 98.3
[2022-03-16] MEDS ORDERED: PORTA CATH FLUSH 10 ML IVPUSH PRN (17:21)
[2022-03-16 17:22] VITALS: BP 118/60; PULSE 56
[2022-03-18 17:07] LABS: BETA-2-MICROGLOBULIN 1.7 mg/L (0.6-2.4)
== END 2022-03-16 16:05 | disposition home or self-care (01) ==
LOC: JONCCHEMO 06:47
PROVIDERS: ATTEND Internal Medicine Hematology & Oncology
PROC: 3E04305 Introduction of Other Antineoplastic into Central Vein, Percutaneous Approach (ICD-10-PCS; principal; 2022-03-16)
PROC: 3E043GC Introduction of Other Therapeutic Substance into Central Vein, Percutaneous Approach (ICD-10-PCS; 2022-03-16)
PROC: 3E0437Z Introduction of Electrolytic and Water Balance Substance into Central Vein, Percutaneous Approach (ICD-10-PCS; 2022-03-16)
DX: Z51.11 Encounter for antineoplastic chemotherapy (principal); C83.31 Diffuse large B-cell lymphoma, lymph nodes of head, face, and neck
CPT/HCPCS: 36415; 80048; 80076; 82232; 82784; 83615; 83735; 84550; 85025; 96361; 96367; 96413; 96415; Q5115

== ENCOUNTER 2022-03-17 08:15 | Day surgery (SDC) | payer OTHER, BC ==
[~2022-03-17 08:15] MED LIST changes: -DEXAMETHASONE SODIUM PHOSPHATE 10 MG in SODIUM CHLORIDE 50 ML IVPB ONE; -POTASSIUM CHLORIDE 10 MEQ, MAGNESIUM SULFATE 1 GM in SODIUM CHLORIDE 500 ML IV ONE; +SODIUM CHLORIDE 500 ML IV ONE
[2022-03-17] MEDS ORDERED: DEXAMETHASONE SODIUM PHOSPHATE 10 MG in SODIUM CHLORIDE 50 ML IVPB ONE (08:30)
[2022-03-17] MEDS ORDERED: PALONOSETRON HCL 0.25 MG/5 ML VIAL IVPUSH ONE (08:30)
[2022-03-17] MEDS ORDERED: FOSAPREPITANT DIMEGLUMINE 150 MG in SODIUM CHLORIDE 145 ML IVPB ONE (08:30)
[2022-03-17] MEDS ORDERED: DOXOrubicin HCL 50 MG/25 ML VIAL IV ONE (09:00)
[2022-03-17] MEDS ORDERED: SODIUM CHLORIDE IVPB ONE (09:15)
[2022-03-17] MEDS ORDERED: CYCLOPHOSPHAMIDE IVPB ONE (09:15)
[2022-03-17 09:43] VITALS: TEMP 98.3
[2022-03-17] MEDS ORDERED: vinCRIStine SULFATE 1 MG in SODIUM CHLORIDE 25 ML IVPB ONE (09:45)
[2022-03-17] MEDS ORDERED: POTASSIUM CHLORIDE 10 MEQ, MAGNESIUM SULFATE 1 GM in SODIUM CHLORIDE 500 ML IV ONE (10:00)
[2022-03-17] MEDS ORDERED: PORTA CATH FLUSH 10 ML IVPUSH PRN (16:24)
[2022-03-17 16:25] VITALS: BP 113/54; PULSE 69
== END 2022-03-17 13:30 | disposition home or self-care (01) ==
LOC: JONCCHEMO 08:15
PROVIDERS: ATTEND Internal Medicine Hematology & Oncology
PROC: 3E04305 Introduction of Other Antineoplastic into Central Vein, Percutaneous Approach (ICD-10-PCS; principal; 2022-03-17)
PROC: 3E043GC Introduction of Other Therapeutic Substance into Central Vein, Percutaneous Approach (ICD-10-PCS; 2022-03-17)
PROC: 3E0437Z Introduction of Electrolytic and Water Balance Substance into Central Vein, Percutaneous Approach (ICD-10-PCS; 2022-03-17)
DX: Z51.11 Encounter for antineoplastic chemotherapy (principal); C83.31 Diffuse large B-cell lymphoma, lymph nodes of head, face, and neck
CPT/HCPCS: 96367; 96375; 96411; 96413; J1453; J2469; J9070; J9370

== ENCOUNTER 2022-03-18 06:55 | Day surgery (SDC) | payer OTHER, BC ==
[2022-03-18] MEDS ORDERED: POTASSIUM CHLORIDE 10 MEQ, MAGNESIUM SULFATE 1 GM in SODIUM CHLORIDE 500 ML IV ONE (09:00)
[2022-03-18] MEDS ORDERED: DEXAMETHASONE SODIUM PHOSPHATE 10 MG in SODIUM CHLORIDE 50 ML IVPB ONE (09:00)
[2022-03-18] MEDS ORDERED: PEGFILGRASTIM-CBQV (UDENYCA) 6 MG/0.6 ML SYRINGE SQ ONE (09:30)
[2022-03-18 12:29] VITALS: TEMP 98.4
[2022-03-18 15:27] VITALS: BP 124/52; PULSE 57
[2022-03-18] MEDS ORDERED: PORTA CATH FLUSH 10 ML IVPUSH PRN (15:27)
== END 2022-03-18 14:00 | disposition home or self-care (01) ==
LOC: JONCCHEMO 06:55
PROVIDERS: ATTEND Internal Medicine Hematology & Oncology
PROC: 3E043GC Introduction of Other Therapeutic Substance into Central Vein, Percutaneous Approach (ICD-10-PCS; principal; 2022-03-18)
DX: C83.31 Diffuse large B-cell lymphoma, lymph nodes of head, face, and neck (principal); Z76.89 Persons encountering health services in other specified circumstances
CPT/HCPCS: 96365; 96372; 96375; Q5111

== ENCOUNTER 2022-04-06 07:17 | Day surgery (SDC) | payer OTHER, BC ==
[2022-04-06] MEDS ORDERED: SODIUM CHLORIDE 250 ML IV ONE (09:00)
[2022-04-06] MEDS ORDERED: DEXAMETHASONE SODIUM PHOSPHATE 10 MG, DIPHENHYDRAMINE 25 MG in SODIUM CHLORIDE 100 ML IVPB ONE (10:00)
[2022-04-06] MEDS ORDERED: ACETAMINOPHEN 325 MG TABLET (FP) PO ONE (10:00)
[2022-04-06 10:16] LABS: BASO % 0.4 % (0-2.0); EOS % 2.8 % (0-4.5); HEMATOCRIT 31.4 % (32.4-45.2); HEMOGLOBIN 10.8 GM/dL (10.7-15.3); LYMPH % 13.6 % (8-40); MCH 34.9 pg (25.7-33.7); MCHC 34.3 g/dl (32.0-36.0); MEAN CELL VOLUME 101.9 fl (80-96); MEAN PLT VOLUME 7.8 fl (7.5-11.1); MONO % 10.9 % (3.8-10.2); NEUT % 72.3 % (42.8-82.8); PLATELET COUNT 293 10^3/uL (134-434); RBC 3.08 M/mm3 (3.60-5.2); RDW 19.1 % (11.6-15.6); WHITE BLOOD COUNT 5.4 K/mm3 (4.0-10.0)
[2022-04-06] MEDS ORDERED: SODIUM CHLORIDE IVPB ONE (10:30)
[2022-04-06] MEDS ORDERED: RITUXIMAB ABBS IVPB ONE (10:30)
[2022-04-06 10:41] LABS: ALBUMIN 3.6 g/dl (3.4-5.0); BLOOD UREA NITROGEN 15.8 mg/dL (7-18); CALCIUM 9.2 mg/dL (8.5-10.1); MAGNESIUM 1.9 mg/dL (1.8-2.4)
[2022-04-06 10:43] LABS: BILIRUBIN,DIRECT 0.1 mg/dL (0.0-0.2); CREATININE 0.7 mg/dL (0.55-1.3); URIC ACID 2.1 mg/dL (2.6-7.2)
[2022-04-06 10:46] LABS: BILIRUBIN,TOTAL 0.3 mg/dL (0.2-1); TOT PROT 6.2 g/dl (6.4-8.2)
[2022-04-06] MEDS ORDERED: PORTA CATH FLUSH 10 ML IVPUSH PRN (16:41)
[2022-04-06 16:42] VITALS: BP 122/64; PULSE 80; TEMP 98.3
== END 2022-04-06 15:20 | disposition home or self-care (01) ==
LOC: JONCCHEMO 07:17
PROVIDERS: ATTEND Internal Medicine Hematology & Oncology
DX: Z51.11 Encounter for antineoplastic chemotherapy (principal); C83.31 Diffuse large B-cell lymphoma, lymph nodes of head, face, and neck
CPT/HCPCS: 36415; 80048; 80076; 83615; 83735; 84550; 85025; 96361; 96367; 96413; 96415; Q5115

== ENCOUNTER 2022-04-07 06:57 | Day surgery (SDC) | payer OTHER, BC ==
[2022-04-07] MEDS ORDERED: DEXAMETHASONE SODIUM PHOSPHATE 10 MG in SODIUM CHLORIDE 50 ML IVPB ONE (10:00)
[2022-04-07] MEDS ORDERED: PALONOSETRON HCL 0.25 MG/5 ML VIAL IVPUSH ONE (10:00)
[2022-04-07] MEDS ORDERED: SODIUM CHLORIDE 500 ML IV ONE (10:00)
[2022-04-07] MEDS ORDERED: FOSAPREPITANT DIMEGLUMINE 150 MG in SODIUM CHLORIDE 145 ML IVPB ONE (10:00)
[2022-04-07 10:30] VITALS: TEMP 98.8
[2022-04-07] MEDS ORDERED: CYCLOPHOSPHAMIDE IVPB ONE (10:30)
[2022-04-07] MEDS ORDERED: SODIUM CHLORIDE IVPB ONE (10:30)
[2022-04-07] MEDS ORDERED: DOXOrubicin HCL 50 MG/25 ML VIAL IV ONE (11:00)
[2022-04-07] MEDS ORDERED: vinCRIStine SULFATE 1 MG in SODIUM CHLORIDE 25 ML IVPB ONE (11:00)
[2022-04-07] MEDS ORDERED: POTASSIUM CHLORIDE 10 MEQ, MAGNESIUM SULFATE 1 GM in SODIUM CHLORIDE 500 ML IVPB ONE (12:00)
[2022-04-07 16:55] VITALS: BP 131/57; PULSE 65
[2022-04-07] MEDS ORDERED: PORTA CATH FLUSH 10 ML IVPUSH PRN (16:55)
== END 2022-04-07 15:15 | disposition home or self-care (01) ==
LOC: JONCCHEMO 06:57
PROVIDERS: ATTEND Internal Medicine Hematology & Oncology
DX: Z51.11 Encounter for antineoplastic chemotherapy (principal); C83.31 Diffuse large B-cell lymphoma, lymph nodes of head, face, and neck
CPT/HCPCS: 96361; 96367; 96375; 96411; 96413; J1453; J2469; J9070; J9370

== ENCOUNTER 2022-04-08 06:15 | Day surgery (SDC) | payer OTHER, BC ==
[2022-04-08] MEDS ORDERED: PEGFILGRASTIM-CBQV (UDENYCA) 6 MG/0.6 ML SYRINGE SQ ONE (10:00)
[2022-04-08] MEDS ORDERED: SODIUM CHLORIDE IVPB ONE (10:00)
[2022-04-08] MEDS ORDERED: MAGNESIUM SO4 IVPB ONE (10:00)
[2022-04-08] MEDS ORDERED: DEXAMETHASONE SODIUM PHOSPHATE 10 MG in DEXTROSE 5%-WATER - 50 ML IVPB ONE (10:00)
[2022-04-08] MEDS ORDERED: POTASSIUM CHLORIDE IVPB ONE (10:00)
[2022-04-08 16:28] VITALS: TEMP 98.3
[2022-04-08 16:33] VITALS: BP 151/61; PULSE 60
[2022-04-08] MEDS ORDERED: PORTA CATH FLUSH 10 ML IVPUSH PRN (16:33)
== END 2022-04-08 12:40 | disposition home or self-care (01) ==
LOC: JONCCHEMO 06:15
PROVIDERS: ATTEND Internal Medicine Hematology & Oncology
PROC: 3E043GC Introduction of Other Therapeutic Substance into Central Vein, Percutaneous Approach (ICD-10-PCS; principal; 2022-04-08)
DX: C83.31 Diffuse large B-cell lymphoma, lymph nodes of head, face, and neck (principal); Z76.89 Persons encountering health services in other specified circumstances
CPT/HCPCS: 96365; 96372; 96375; Q5111

== ENCOUNTER 2022-04-26 07:33 | Day surgery (SDC) | payer OTHER, BC ==
[2022-04-26] MEDS ORDERED: SODIUM CHLORIDE 250 ML IV ONE ×2 (09:00→13:00)
[2022-04-26] MEDS ORDERED: DEXAMETHASONE SODIUM PHOSPHATE 10 MG, DIPHENHYDRAMINE 25 MG in SODIUM CHLORIDE 100 ML IVPB ONE (09:30)
[2022-04-26] MEDS ORDERED: ACETAMINOPHEN 325 MG TABLET (FP) PO ONE (09:30)
[2022-04-26] MEDS ORDERED: RITUXIMAB-ABBS 500 MG, RITUXIMAB-ABBS 164 MG in SODIUM CHLORIDE 597.6 ML IVPB ONE (10:00)
[2022-04-26 11:11] LABS: BASO % 2.2 % (0-2.0); EOS % 1.6 % (0-4.5); HEMATOCRIT 33.2 % (32.4-45.2); HEMOGLOBIN 11.4 GM/dL (10.7-15.3); LYMPH % 11.5 % (8-40); MCH 35.7 pg (25.7-33.7); MCHC 34.3 g/dl (32.0-36.0); MEAN CELL VOLUME 104.1 fl (80-96); MEAN PLT VOLUME 7.7 fl (7.5-11.1); MONO % 12.1 % (3.8-10.2); NEUT % 72.6 % (42.8-82.8); PLATELET COUNT 271 10^3/uL (134-434); RBC 3.19 M/mm3 (3.60-5.2); RDW 16.9 % (11.6-15.6); WHITE BLOOD COUNT 5.3 K/mm3 (4.0-10.0)
[2022-04-26 11:24] LABS: MAGNESIUM 2.2 mg/dL (1.8-2.4)
[2022-04-26 11:26] LABS: ALBUMIN 3.8 g/dl (3.4-5.0); CALCIUM 9.6 mg/dL (8.5-10.1)
[2022-04-26 11:28] LABS: CREATININE 0.7 mg/dL (0.55-1.3); URIC ACID 2.2 mg/dL (2.6-7.2)
[2022-04-26 11:29] LABS: BILIRUBIN,DIRECT 0.1 mg/dL (0.0-0.2)
[2022-04-26 11:30] LABS: TOT PROT 6.3 g/dl (6.4-8.2)
[2022-04-26 11:31] LABS: BILIRUBIN,TOTAL 0.3 mg/dL (0.2-1)
[2022-04-26 17:08] VITALS: TEMP 98.2
[2022-04-26 17:22] VITALS: BP 113/71; PULSE 74
[2022-04-26] MEDS ORDERED: PORTA CATH FLUSH 10 ML IVPUSH PRN (17:22)
== END 2022-04-26 17:00 | disposition home or self-care (01) ==
LOC: JONCCHEMO 07:33
PROVIDERS: ATTEND Internal Medicine Hematology & Oncology
DX: Z51.11 Encounter for antineoplastic chemotherapy (principal); C83.31 Diffuse large B-cell lymphoma, lymph nodes of head, face, and neck
CPT/HCPCS: 36415; 80048; 80076; 83615; 83735; 84550; 85025; 96367; 96413; 96415; Q5115

== ENCOUNTER 2022-04-27 07:47 | Day surgery (SDC) | payer OTHER, BC ==
[2022-04-27] MEDS ORDERED: SODIUM CHLORIDE 500 ML IV ONE (09:00)
[2022-04-27 09:17] VITALS: TEMP 98.6
[2022-04-27] MEDS ORDERED: PALONOSETRON HCL 0.25 MG/5 ML VIAL IVPUSH ONE (09:30)
[2022-04-27] MEDS ORDERED: DEXAMETHASONE SODIUM PHOSPHATE 10 MG in SODIUM CHLORIDE 50 ML IVPB ONE (09:30)
[2022-04-27] MEDS ORDERED: FOSAPREPITANT DIMEGLUMINE 150 MG in SODIUM CHLORIDE 145 ML IVPB ONE (09:30)
[2022-04-27] MEDS ORDERED: DOXOrubicin HCL 50 MG/25 ML VIAL IV ONE (10:00)
[2022-04-27] MEDS ORDERED: vinCRIStine SULFATE 1 MG in SODIUM CHLORIDE 25 ML IVPB ONE (10:15)
[2022-04-27] MEDS ORDERED: CYCLOPHOSPHAMIDE IVPB ONE (10:20)
[2022-04-27] MEDS ORDERED: SODIUM CHLORIDE IVPB ONE (10:20)
[2022-04-27] MEDS ORDERED: POTASSIUM CHLORIDE 10 MEQ, MAGNESIUM SULFATE 1 GM in SODIUM CHLORIDE 500 ML IVPB ONE (11:00)
[2022-04-27] MEDS ORDERED: PORTA CATH FLUSH 10 ML IVPUSH PRN (14:05)
[2022-04-27 17:16] VITALS: BP 135/60; PULSE 75
== END 2022-04-27 15:00 | disposition home or self-care (01) ==
LOC: JONCCHEMO 07:47
PROVIDERS: ATTEND Internal Medicine Hematology & Oncology
DX: Z51.11 Encounter for antineoplastic chemotherapy (principal); C83.31 Diffuse large B-cell lymphoma, lymph nodes of head, face, and neck
CPT/HCPCS: 96361; 96367; 96375; 96411; 96413; J1453; J2469; J9070; J9370

== ENCOUNTER 2022-04-28 07:05 | Day surgery (SDC) | payer OTHER, BC ==
[2022-04-28] MEDS ORDERED: POTASSIUM CHLORIDE 10 MEQ, MAGNESIUM SULFATE 1 GM in SODIUM CHLORIDE 500 ML IVPB ONE (09:30)
[2022-04-28] MEDS ORDERED: DEXAMETHASONE SODIUM PHOSPHATE 10 MG in SODIUM CHLORIDE 50 ML IVPB ONE (09:30)
[2022-04-28] MEDS ORDERED: PEGFILGRASTIM-CBQV (UDENYCA) 6 MG/0.6 ML SYRINGE SQ ONE (09:30)
[2022-04-28 15:32] VITALS: TEMP 98.1
[2022-04-28 15:38] VITALS: BP 136/55; PULSE 58
[2022-04-28] MEDS ORDERED: PORTA CATH FLUSH 10 ML IVPUSH PRN (15:38)
== END 2022-04-28 12:30 | disposition home or self-care (01) ==
LOC: JONCCHEMO 07:05
PROVIDERS: ATTEND Internal Medicine Hematology & Oncology
PROC: 3E043GC Introduction of Other Therapeutic Substance into Central Vein, Percutaneous Approach (ICD-10-PCS; principal; 2022-04-28)
PROC: 3E01305 Introduction of Other Antineoplastic into Subcutaneous Tissue, Percutaneous Approach (ICD-10-PCS; 2022-04-28)
DX: C83.31 Diffuse large B-cell lymphoma, lymph nodes of head, face, and neck (principal); Z76.89 Persons encountering health services in other specified circumstances
CPT/HCPCS: 96365; 96372; Q5111

== ENCOUNTER 2022-06-01 06:34 | Day surgery (SDC) | payer OTHER, BC ==
[2022-05-26 16:32] VITALS: BMI 31.2
[2022-06-01 11:13] VITALS: BP 128/62; PULSE 66; RESP 14
[2022-06-01 11:16] VITALS: TEMP 97.1
== END 2022-06-01 11:45 | disposition home or self-care (01) ==
LOC: JASU-ENDO 06:34
PROVIDERS: ATTEND Internal Medicine Gastroenterology
PROC: 0DB68ZX Excision of Stomach, Via Natural or Artificial Opening Endoscopic, Diagnostic (ICD-10-PCS; 2022-06-01)
PROC: 0DB48ZX Excision of Esophagogastric Junction, Via Natural or Artificial Opening Endoscopic, Diagnostic (ICD-10-PCS; 2022-06-01)
PROC: 0DB98ZX Excision of Duodenum, Via Natural or Artificial Opening Endoscopic, Diagnostic (ICD-10-PCS; principal; 2022-06-01 10:00)
DX: C82.89 Other types of follicular lymphoma, extranodal and solid organ sites (principal); K29.70 Gastritis, unspecified, without bleeding
CPT/HCPCS: 88305-TC; 88342-TC